=== PATIENT | female | born 1945 | race Caucasian/White ===

== ENCOUNTER → 2023-08-13 10:34 | Outpatient (REF) | payer MEDICARE, SELFPAY | LOC: DHCBC/DCA 10:34 | PROVIDERS: ATTENDING PHYSICIAN Internal Medicine Cardiovascular Disease; FAMILY PHYSICIAN Family Medicine | DX: I42.8 Other cardiomyopathies (principal) | CPT/HCPCS: 78452; 93017; A9500; J2785 ==

== ENCOUNTER → 2023-09-14 09:56 | Outpatient (REF) | payer MEDICARE, SELFPAY ==
[2023-09-14 12:38] LABS: ALT (SGPT) 20 U/L (0-35); AST (SGOT) 25 U/L (14-36); Albumin 3.9 g/dl (3.5-5.0); Alkaline Phosphatase 70 U/L (38-126); Blood Urea Nitrogen 29 mg/dl (7-17); Calcium 9.5 mg/dl (8.4-10.2); Carbon Dioxide 26 mmol/L (22-30); Chloride 106 mmol/L (98-107); Glucose 100 mg/dl (70-99); HDL Cholesterol 63 mg/dl; LDL Cholesterol, Calculated 97 mg/dl; Magnesium 2.2 mg/dl (1.6-2.3); Potassium 4.9 mmol/L (3.5-5.1); Sodium 135 mmol/L (135-145); Total Bilirubin 0.7 mg/dl (0.2-1.3); Total Cholesterol 191 mg/dl (50-199); Total Protein 6.4 g/dl (6.3-8.2); Triglyceride 156 mg/dl (10-149); Very Low Density Lipoprotein 31 mg/dl (0-30); eGFR 35.01
[2023-09-14 13:08] LABS: TSH Reflex To Free T4 0.58 uIU/ml (0.47-4.68)
[2023-09-14 14:56] LABS: Glycohemoglobin (HgbA1c) 5.8 % (4.0-5.6)
== END ==
LOC: HWLAB 09:56
PROVIDERS: ATTENDING PHYSICIAN Internal Medicine Cardiovascular Disease; FAMILY PHYSICIAN Family Medicine
DX: R79.89 Other specified abnormal findings of blood chemistry (principal); E78.5 Hyperlipidemia, unspecified; E34.9 Endocrine disorder, unspecified; R73.09 Other abnormal glucose; I49.9 Cardiac arrhythmia, unspecified
CPT/HCPCS: 36415; 80053; 80061; 83036; 83735; 84443

== ENCOUNTER → 2023-12-27 12:29 | Outpatient (REF) | payer MEDICARE, SELFPAY ==
[2023-12-27 16:13] LABS: ALT (SGPT) 19 U/L (0-35); AST (SGOT) 25 U/L (14-36); Albumin 3.8 g/dl (3.5-5.0); Alkaline Phosphatase 77 U/L (38-126); Blood Urea Nitrogen 30 mg/dl (7-17); Calcium 9.2 mg/dl (8.4-10.2); Carbon Dioxide 22 mmol/L (22-30); Chloride 109 mmol/L (98-107); Glucose 93 mg/dl (70-99); Potassium 4.5 mmol/L (3.5-5.1); Sodium 138 mmol/L (135-145); Total Bilirubin 0.6 mg/dl (0.2-1.3); Total Protein 6.3 g/dl (6.3-8.2); eGFR 41.57
[2023-12-27 16:18] LABS: NT-proBNP 561 pg/ml
[2023-12-27 16:50] LABS: TSH Reflex To Free T4 0.63 uIU/ml (0.47-4.68)
== END ==
LOC: HWLAB 12:29
PROVIDERS: ATTENDING PHYSICIAN Internal Medicine Cardiovascular Disease; FAMILY PHYSICIAN Family Medicine
DX: R79.89 Other specified abnormal findings of blood chemistry (principal); I50.9 Heart failure, unspecified; E34.9 Endocrine disorder, unspecified; Z13.29 Encounter for screening for other suspected endocrine disorder; I49.9 Cardiac arrhythmia, unspecified
CPT/HCPCS: 36415; 80053; 83735; 83880; 84443

== ENCOUNTER → 2024-11-26 09:18 | Outpatient (REF) | payer MEDICARE, SELFPAY ==
[2024-11-26 13:23] LABS: Hematocrit 43.8 % (37.0-47.0); Hemoglobin 14.4 g/dL (12.0-16.0); Mean Corp Hgb Conc. 32.9 g/dL (33.0-37.0); Mean Corpuscular Volume 101.4 fL (81.0-99.0); Nucleated Red Blood Cells % 0 %; Platelet Count 207 10^3/uL (130-400); Red Cell Dist. Width 12.4 % (11.5-14.5)
[2024-11-26 13:43] LABS: ALT (SGPT) 22 U/L (0-35); AST (SGOT) 23 U/L (14-36); Albumin 4.2 g/dl (3.5-5.0); Alkaline Phosphatase 64 U/L (38-126); Blood Urea Nitrogen 28 mg/dl (7-17); Calcium 9.7 mg/dl (8.4-10.2); Carbon Dioxide 27 mmol/L (22-30); Chloride 110 mmol/L (98-107); Glucose 94 mg/dl (70-99); HDL Cholesterol 61 mg/dl; Iron 89 ug/dl (37-170); LDL Cholesterol, Calculated 109 mg/dl; Magnesium 2.3 mg/dl (1.6-2.3); Potassium 4.7 mmol/L (3.5-5.1); Sodium 139 mmol/L (135-145); Total Protein 6.7 g/dl (6.3-8.2); Uric Acid 5.5 mg/dl (2.5-6.2); Very Low Density Lipoprotein 26 mg/dl (0-30); eGFR 37.80
[2024-11-26 13:52] LABS: Total Iron Binding Capacity 236 ug/dl (265-497)
[2024-11-26 13:53] LABS: Vitamin D, 25-OH*** 37.1 ng/mL (30-80)
[2024-11-26 14:07] LABS: TSH 0.13 uIU/ml (0.47-4.68)
[2024-11-26 14:11] LABS: CEA 4.75 ng/ml; Ferritin 45.0 ng/ml (11.1-264.0)
[2024-11-26 14:27] LABS: Glycohemoglobin (HgbA1c) 5.5 % (4.0-5.6)
[2024-11-26 14:43] LABS: Folate 8.3 ng/ml (2.76-20); Vitamin B12 472 pg/ml (239-931)
[2024-11-26 16:16] LABS: Urine Character Clear (Clear)
[2024-11-26 16:27] LABS: Urine White Cell 0-2 /HPF (0-5)
== END ==
LOC: HWRAD 09:18
PROVIDERS: ATTENDING PHYSICIAN Family Medicine
DX: K82.4 Cholesterolosis of gallbladder (principal); R06.02 Shortness of breath; E03.9 Hypothyroidism, unspecified; I10 Essential (primary) hypertension; Z00.00 Encounter for general adult medical examination without abnormal findings; E78.5 Hyperlipidemia, unspecified; E53.8 Deficiency of other specified B group vitamins; R73.09 Other abnormal glucose; R79.89 Other specified abnormal findings of blood chemistry; R97.0 Elevated carcinoembryonic antigen [CEA]
CPT/HCPCS: 36415; 71046; 76700; 80053; 80061; 81003; 81015; 82306; 82378; 82607; 82728; 82746; 83036; 83540; 83550; 83735; 84100; 84439; 84443; 84550; 85025

== ENCOUNTER → 2025-01-01 12:42 | Outpatient (REF) | payer MEDICARE, SELFPAY ==
[2025-01-01 18:09] LABS: Urine Character Clear (Clear)
[2025-01-01 18:41] LABS: Urine Squamous Cell >30 /LPF (Few)
[2025-01-01 18:42] LABS: Urine Red Blood Cell 0-2 /HPF (0-2)
== END ==
LOC: REG 12:42
PROVIDERS: ATTENDING PHYSICIAN Family Medicine
DX: R35.0 Frequency of micturition (principal)
CPT/HCPCS: 81003; 81015; 87086